=== PATIENT | female | born 1940 | race Caucasian/White ===

== ENCOUNTER → 2016-10-08 10:07 | Outpatient (CLI) | payer MEDICARE, OTHER ==
[2015-10-05 12:53] VITALS: BMI 31.9
[~2016-10-08 10:07] MED LIST: ALBUTEROL1.25 MG/3 INH; CRESTOR10 MG PO; LANTUS SOL100 UNIT/1; LEVSIN/ANASP0.125 MG PO; LISINOPRIL5 MG PO; MACRODANTIN50 MG PO; PRILOSEC20 MG PO; PROAIR HFA8.5 GM INH; PROLIA INJ 660 MG/M1 IJ; SINGULAIR10 MG PO; SYNTHROID100 MCG PO; SYNTHROID150 MCG PO; TESSALON PERLE100 MG PO; TOPROL XL50 MG PO; VITAMIN D31000 UNIT
== END | disposition home or self-care (01) ==
LOC: D.US 10-05 10:30
DX: I70.213 Atherosclerosis of native arteries of extremities with intermittent claudication, bilateral legs (principal); R60.0 Localized edema; M79.605 Pain in left leg; M79.604 Pain in right leg

== ENCOUNTER 2017-03-13 15:46 | Emergency (ER) | payer MEDICARE, OTHER ==
[2015-10-05 12:53] VITALS: BMI 31.9
[2017-03-13 17:37] LABS: BASOPHILS 0.1 % (0-2); EOSINOPHILS 0.2 % (0-7); HEMATOCRIT 36.2 % (36.0-48.0); HEMOGLOBIN 11.7 g/dL (12-16); IMMATURE GRANULOCYTES 0.2 % (0-5); LYMPHOCYTES 11.9 % (15-50); MCH 28.4 pg (26.0-34.0); MCHC 32.3 g/dL (31.0-37.0); MCV 87.9 fL (80.0-100.0); MEAN PLATELET VOLUME 10.2 fL (7.4-10.4); MONOCYTES 5.3 % (2-11); NEUTROPHILS 82.3 % (40-80); RBC 4.12 10x6/uL (4.00-5.40); RDW 16.3 % (11.5-14.5); WBC 9.2 10x3/uL (4.8-10.8)
[2017-03-13 17:40] LABS: PLATELET COUNT 217 10x3/uL (130-400)
[2017-03-13 17:52] LABS: INR 0.91 (0.85-1.17); PROTIME 12.1 SECONDS (11.6-15.0)
[2017-03-13 17:56] LABS: APPEARANCE HAZY (CLEAR); BILIRUBIN NEGATIVE (NEGATIVE); COLOR YELLOW (YELLOW); GLUCOSE NEGATIVE (NEGATIVE); KETONE LARGE mg/dL (NEGATIVE); LEUKOCYTE ESTERASE 1+ (NEGATIVE); NITRITE NEGATIVE (NEGATIVE); PROTEIN NEGATIVE (NEGATIVE); UROBILINOGEN NORMAL (NORMAL)
[2017-03-13 17:58] LABS: BACTERIA FEW /hpf (NONE SEEN); EPITHELIAL CELLS 0-5 /hpf (0-5); RED CELLS - URINE 0-5 /hpf (0-5); WHITE CELLS - URINE 25-50 /hpf (0-5)
[2017-03-13 17:59] LABS: ALBUMIN 3.3 g/dL (3.4-5.0); ALKALINE PHOSPHATASE 149 U/L (46-116); ALT (SGPT) 26 U/L (10-68); BILIRUBIN - TOTAL 0.31 mg/dL (0.2-1.3); CALCIUM 8.6 mg/dL (8.5-10.1); CARBON DIOXIDE 26.7 mmol/L (21.0-32.0); CHLORIDE - SERUM 97 mmol/L (98-107); CREATININE - SERUM 1.3 mg/dL (0.6-1.3); PROTEIN - SERUM 7.7 g/dL (6.4-8.2); SODIUM 133 mmol/L (136-145); UREA NITROGEN 18 mg/dL (7-18); eGFR NON AFRICAN AMERICAN 42 mL/min (90-120)
[2017-03-13 18:12] LABS: AMYLASE - SERUM 152 U/L (25-115); LIPASE 425 U/L (73-393); MAGNESIUM - SERUM 2.1 mg/dL (1.8-2.4); PRO BNP 71 pg/mL (0-450)
[2017-03-13 18:17] LABS: CALC OSMOLALITY 282 mosm/kg (275-300); GLUCOSE 372 mg/dL (74-106); TROPONIN-I < 0.017 ng/mL (0.000-0.060)
== END 2017-03-13 21:05 | disposition home or self-care (01) ==
LOC: D.ER 15:46
PROVIDERS: Emergency Medicine; Nurse Practitioner Family
DX: E11.65 Type 2 diabetes mellitus with hyperglycemia (principal); Z79.4 Long term (current) use of insulin; N39.0 Urinary tract infection, site not specified; Z79.2 Long term (current) use of antibiotics; E05.00 Thyrotoxicosis with diffuse goiter without thyrotoxic crisis or storm; J44.9 Chronic obstructive pulmonary disease, unspecified

== ENCOUNTER → 2017-06-10 08:39 | Outpatient (CLI) | payer MEDICARE, OTHER ==
[2015-10-05 12:53] VITALS: BMI 31.9
== END | disposition home or self-care (01) ==
LOC: D.RT 08:39
DX: J44.9 Chronic obstructive pulmonary disease, unspecified (principal)

== ENCOUNTER → 2018-02-06 07:22 | Outpatient (CLI) | payer MEDICARE, OTHER ==
[2015-10-05 12:53] VITALS: BMI 31.9
== END | disposition home or self-care (01) ==
LOC: D.CT 07:22
DX: N32.1 Vesicointestinal fistula (principal)

== ENCOUNTER → 2018-02-20 15:09 | Outpatient (CLI) | payer MEDICARE, OTHER ==
[2015-10-05 12:53] VITALS: BMI 31.9
[2018-02-20 16:59] LABS: APPEARANCE HAZY (CLEAR); BILIRUBIN NEGATIVE (NEGATIVE); COLOR DK YELLOW (YELLOW); GLUCOSE NEGATIVE (NEGATIVE); KETONE NEGATIVE (NEGATIVE); NITRITE NEGATIVE (NEGATIVE); PROTEIN 1+ mg/dL (NEGATIVE); SPECIFIC GRAVITY 1.015 (1.005-1.020); UROBILINOGEN NORMAL (NORMAL)
[2018-02-20 17:00] LABS: RED CELLS - URINE 25-50 /hpf (0-5); WHITE CELLS - URINE 0-5 /hpf (0-5)
[2018-02-20 17:01] LABS: BACTERIA FEW /hpf (NONE SEEN)
== END | disposition home or self-care (01) ==
LOC: D.LABREF 15:09
PROVIDERS: Urology
DX: R33.8 Other retention of urine (principal)

== ENCOUNTER → 2018-02-25 11:48 | Outpatient (CLI) | payer MEDICARE, OTHER ==
[2015-10-05 12:53] VITALS: BMI 31.9
[2018-02-25 13:00] LABS: APPEARANCE HAZY (CLEAR); BACTERIA MANY /hpf (NONE SEEN); BILIRUBIN NEGATIVE (NEGATIVE); COLOR YELLOW (YELLOW); EPITHELIAL CELLS 0-5 /hpf (0-5); GLUCOSE NEGATIVE (NEGATIVE); KETONE NEGATIVE (NEGATIVE); MUCUS <1+ /lpf (NONE SEEN); NITRITE NEGATIVE (NEGATIVE); PROTEIN TRACE mg/dL (NEGATIVE); RED CELLS - URINE 0-5 /hpf (0-5); UROBILINOGEN NORMAL (NORMAL)
== END | disposition home or self-care (01) ==
LOC: D.LAB 11:48
PROVIDERS: Urology
DX: N39.0 Urinary tract infection, site not specified (principal)

== ENCOUNTER → 2018-04-03 12:57 | Outpatient (CLI) | payer MEDICARE, OTHER ==
[2015-10-05 12:53] VITALS: BMI 31.9
[2018-04-03 15:58] LABS: APPEARANCE HAZY (CLEAR); BILIRUBIN NEGATIVE (NEGATIVE); COLOR YELLOW (YELLOW); GLUCOSE NEGATIVE (NEGATIVE); KETONE NEGATIVE (NEGATIVE); NITRITE NEGATIVE (NEGATIVE); PROTEIN NEGATIVE (NEGATIVE); UROBILINOGEN NORMAL (NORMAL)
[2018-04-03 16:09] LABS: BACTERIA MODERATE /hpf (NONE SEEN); EPITHELIAL CELLS 0-5 /hpf (0-5); RED CELLS - URINE 25-50 /hpf (0-5)
== END | disposition home or self-care (01) ==
LOC: D.LABREF 12:57
PROVIDERS: Urology
DX: R33.8 Other retention of urine (principal); N32.1 Vesicointestinal fistula; Z87.440 Personal history of urinary (tract) infections

== ENCOUNTER → 2018-04-08 16:23 | Outpatient (CLI) | payer MEDICARE, OTHER ==
[2015-10-05 12:53] VITALS: BMI 31.9
[2018-04-08 18:14] LABS: APPEARANCE CLEAR (CLEAR); BACTERIA MODERATE /hpf (NONE SEEN); BILIRUBIN NEGATIVE (NEGATIVE); COLOR YELLOW (YELLOW); EPITHELIAL CELLS 0-5 /hpf (0-5); GLUCOSE NEGATIVE (NEGATIVE); KETONE NEGATIVE (NEGATIVE); NITRITE NEGATIVE (NEGATIVE); PROTEIN NEGATIVE (NEGATIVE); RED CELLS - URINE 0-5 /hpf (0-5); UROBILINOGEN NORMAL (NORMAL); WHITE CELLS - URINE 25-50 /hpf (0-5)
== END | disposition home or self-care (01) ==
LOC: D.LABREF 16:23
PROVIDERS: Urology
DX: R33.9 Retention of urine, unspecified (principal); N28.9 Disorder of kidney and ureter, unspecified; E11.9 Type 2 diabetes mellitus without complications; T83.9XXA Unspecified complication of genitourinary prosthetic device, implant and graft, initial encounter

== ENCOUNTER → 2018-04-25 18:06 | Outpatient (CLI) | payer MEDICARE, OTHER ==
[2015-10-05 12:53] VITALS: BMI 31.9
[~2018-04-25 18:06] MED LIST changes: +IMURAN50 MG PO; +INSULIN LANTUS INJ; +NOVOLOG100 UNIT/1 SQ; +OMEPRAZOLE20 M1 PO; -PRILOSEC20 MG PO; +SYNTHROID112 MCG PO; -SYNTHROID150 MCG PO; +TETRACYCLINE PO; -VITAMIN D31000 UNIT; +VITAMIN D31000 UNIT PO
== END | disposition home or self-care (01) ==
LOC: D.LABREF 18:06
DX: D72.829 Elevated white blood cell count, unspecified (principal); R31.9 Hematuria, unspecified

== ENCOUNTER → 2018-05-09 21:15 | Outpatient (CLI) | payer MEDICARE, OTHER ==
[2015-10-05 12:53] VITALS: BMI 31.9
== END | disposition home or self-care (01) ==
LOC: D.LABREF 21:15
DX: N39.0 Urinary tract infection, site not specified (principal)

== ENCOUNTER 2018-05-15 05:25 | Day surgery (SDC) | payer MEDICARE, OTHER ==
[2018-05-14 14:58] LABS: BASOPHILS 0.1 % (0-2); EOSINOPHILS 2.1 % (0-7); HEMATOCRIT 36.9 % (36.0-48.0); HEMOGLOBIN 12.8 g/dL (12-16); IMMATURE GRANULOCYTES 0.3 % (0-5); LYMPHOCYTES 16.6 % (15-50); MCH 32.6 pg (26.0-34.0); MCHC 34.7 g/dL (31.0-37.0); MCV 93.9 fL (80.0-100.0); MEAN PLATELET VOLUME 10.4 fL (7.4-10.4); MONOCYTES 7.7 % (2-11); NEUTROPHILS 73.2 % (40-80); RBC 3.93 10x6/uL (4.00-5.40); RDW 15.7 % (11.5-14.5); WBC 9.1 10x3/uL (4.8-10.8)
[2018-05-14 15:00] LABS: PLATELET COUNT 143 10x3/uL (130-400)
[2018-05-14 15:13] LABS: APTT 28.1 SECONDS (22.8-39.4); PROTIME 12.8 SECONDS (11.6-15.0)
[2018-05-14 15:18] LABS: ALBUMIN 3.6 g/dL (3.4-5.0); ANION GAP 13.5 mmol/L (8-16); BILIRUBIN - TOTAL 0.55 mg/dL (0.2-1.3); CALCIUM 9.8 mg/dL (8.5-10.1); CARBON DIOXIDE 28.1 mmol/L (21.0-32.0); CREATININE - SERUM 1.4 mg/dL (0.6-1.3); POTASSIUM - SERUM 4.6 mmol/L (3.5-5.1); PROTEIN - SERUM 7.8 g/dL (6.4-8.2)
[~2018-05-15] VITALS: Ht 160 cm; Wt 83.0 kg
--- NOTE | ~2018-05-15 | OP ---
PATIENT NAME: TOMAS ALDANA MEDICAL RECORD: [id number] :41 LOCATION:IDA ADMISSION DATE: SURGEON: RAMILA BEAVERS MD DATE OF OPERATION: 05/15/2018 SURGEON: Ramila Beavers MD ANESTHESIA: TIVA by Sacha Wheeler. DIAGNOSIS: Chronic idiopathic urinary retention. PROCEDURE: InterStim stage I right S3. FINDINGS: Vaginal sensation of the right S3 with teresa reflex and toe flexion response. BLOOD LOSS: None. CLINICAL HISTORY: This is a 78-year-old female, who has chronic urinary retention. One of the urologists from [facility] gave her a chronic suprapubic catheter for urinary drainage. 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 She is having issues with the suprapubic catheter and she would like to resume spontaneous voiding if possible. Therefore, we are performing a trial with a bladder pacemaker today. ALLERGIES: SHE IS ALLERGIC TO INFLUENZA VACCINE, TETANUS TOXOID, ASPIRIN, CODEINE, IBUPROFEN, DEMEROL, BETADINE, BYDUREON, CIPRO, NITROFURANTOIN. We gave her Ancef online marketing coordinator to the OR. She was prepped with chlorhexidine prep. DESCRIPTION OF PROCEDURE: The patient was placed in the prone position on the OR table. She was then prepped and draped. Under fluoroscopy, the level of the S3 foramen was identified. The role of sacral foramina were also identified. Starting from about 2 fingerbreadths or 2 cm above the S3 foramen, we infiltrated the skin with 1% lidocaine with epinephrine. The spinal needles were then inserted and entered the S3 foramen on each side. These needles were tested. On the left side, the patient had more of a rectal sensation and higher voltages were required to elicit a pelvic floor contraction. On the right side, she was far more sensitive with a very low voltages being required to elicit a teresa reflex and toe flexion response on the right side. Also, she was feeling the stimulation in the vaginal area. We decided to go with the right side. The needle on the left side was removed completely. The stylet of the spinal needle was removed. An extra-long stylet was then inserted into the spinal needle lumen. We made a small incision on either side of the spinal needle using a #15 blade. The spinal needle was then removed, leaving the extra-long stylet in place. Over the extra-long stylet, we used a trocar dilator. The radiopaque marker on the trocar dilator was left between the 2 tables with her sacral bone tables at the midpoint. Once the stylet was in correct position, the stylet itself was removed as well as the extra-long stylet. The sheath was left in place. Through the lumen of the sheath, the permanent electrode was placed. This has a curve to it at the end. The curve runs from medial to lateral. We placed the electrode so that the channels 1 and 2 would straddle the inner table of her sacral bone. All 4 channels were tested. All 4 channels gave her response. Channels 1 and 2, gave the strongest OPERATIVE REPORT [id number] TOMAS ALDANA response. At this point, a small 1 inch incision was made in the right iliac crest region just inferior to the iliac crest. The skin here was infiltrated with epinephrine containing lidocaine before making the incision. The distal end of the electrode was tunneled using the tunneling device to this new incision site. Here the permanent tines electrode was connected to the temporary test electrode. The connection was made by tightening down the 4 locking screws with a torque-limiting screwdriver. The connection was made waterproof by placing a sheath around the connection and tying off each end of the sheath with a 2-0 Prolene tie. The tunneling device was again used and just to the left side of the midline on the sacrum, cranial to the sacral nerve entry site. We made an exit site for the temporary test electrode. We then stapled the incisions closed using staple gun. Dressings were applied. The patient will have her suprapubic tube clamped. She will try to void on her own. Once she has voided or if she is unsuccessful in voiding. She will then unclamp the suprapubic tube and measure the amount of postvoid residual. Ideally, she can void the entire amount and her postvoid residual would be 0. I will see her in followup next week to check on her voiding function with this device in place. TRANSINT:[id number] Voice Confirmation ID: [id number] DOCUMENT ID: [id number] RAMILA BEAVERS MD at 1058 CC: [id number] DICTATION DATE: 05/15/18906 ACCOUNTS PAYABLE SUPERVISOR: 05/15/18 0956 [facility] 05/15/18 [place] [id number] [place] [id number]
[2018-05-15 06:31] VITALS: BP 109/46; Ht 160 cm; Wt 83.0 kg
[2018-05-26] MEDS ORDERED: TETRACYCLINE PO (14:00)
== END 2018-05-15 10:20 | disposition home or self-care (01) ==
LOC: D.OPS 05:25 → D.PAN 07:30 → D.OPS 10:20
PROVIDERS: Anesthesiology
DX: R33.8 Other retention of urine (principal)

== ENCOUNTER → 2018-05-23 18:06 | Outpatient (CLI) | payer MEDICARE, OTHER ==
[2018-05-15 06:31] VITALS: BMI 32.4
== END | disposition home or self-care (01) ==
LOC: D.LABREF 18:06
DX: R31.9 Hematuria, unspecified (principal); D72.829 Elevated white blood cell count, unspecified

== ENCOUNTER 2018-05-27 06:01 | Day surgery (SDC) | payer MEDICARE, OTHER ==
[~2018-05-27] VITALS: Ht 160 cm; Wt 83.0 kg
--- NOTE | ~2018-05-27 | OP ---
PATIENT NAME: TOMAS ALDANA MEDICAL RECORD: [id number] :41 LOCATION:IDA ADMISSION DATE: SURGEON: RAMILA BEAVERS MD DATE OF OPERATION: 05/27/2018 SURGEON: Ramila Beavers MD. ANESTHESIA: TIVA by Julio Elmore CRNA. DIAGNOSES: Chronic urinary retention, recurrent urinary tract infections. PROCEDURE: InterStim stage II, removal of suprapubic tube. BLOOD LOSS: None. CLINICAL HISTORY: This is a 78-year-old female, who has chronic idiopathic urinary retention. She saw Dr. Juarez in the past and he placed a suprapubic tube into her. Because of the suprapubic tube, she keeps getting recurrent urinary tract infections. In fact, she is currently on antibiotics for urinary tract infection. I performed a stage I InterStim trial on her. The patient did resume spontaneous voiding on her own. We measured her postvoid residual in the office at 14 mL. She comes to have the permanent pacemaker implanted today, which is a stage II. At the same time, we will remove her suprapubic tube. She is allergic to multiple things including BACTRIM, FLU VACCINE, TETANUS TOXOID, ASPIRIN, CIPRO, CODEINE, BYDUREON, IBUPROFEN, DEMEROL, NITROFURANTOIN, and BETADINE SOAP. She was given Ancef shoe reconditioner to the OR. DESCRIPTION OF PROCEDURE: The patient was given IV sedation while she was still in the stretcher in supine position. The suprapubic catheter balloon was then deflated and removed entirely. We put a temporary dressing on her suprapubic wound site. The patient was then turned into prone position. The janell on her back were removed. She was prepped and draped. The external lead for the InterStim device sticking out of the skin was cut at the skin exit site. The janell had been removed and her incision in the right iliac crest region was reopened. Here, we disconnected the connection between the external lead and the permanent electrode. Once this was done, a pocket was made in the subcutaneous fat with blunt dissection using the fingers. I made the pocket go right above the gluteal fascia. The pacemaker was then inserted on to the wire and tightened down with a torque-limiting screwdriver. The device was then placed into its pocket. Telemetry was performed and it verified that all functions were correct. We then irrigated the wound with normal saline and closed the wound with janell. Dressings were applied. The patient was turned back into the supine position and a new dressing was applied at the suprapubic tube site. I will see her in followup in 1 week's time to remove the janell. TRANSINT:[id number] Voice Confirmation ID: [id number] DOCUMENT ID: [id number] OPERATIVE REPORT [id number] TOMAS ALDANA, RAMILA Collier MD at 1401 CC: [id number] DICTATION DATE: 05/27/18929 BONE CHAR KILN OPERATOR: 05/27/18953 [address] [place] [id number] [place] [address]
[2018-05-27 06:31] LABS: BASOPHILS 0.1 % (0-2); EOSINOPHILS 2.4 % (0-7); HEMATOCRIT 35.5 % (36.0-48.0); IMMATURE GRANULOCYTES 0.4 % (0-5); LYMPHOCYTES 9.9 % (15-50); MCH 32.3 pg (26.0-34.0); MCHC 33.8 g/dL (31.0-37.0); MCV 95.7 fL (80.0-100.0); MONOCYTES 7.4 % (2-11); NEUTROPHILS 79.8 % (40-80); PLATELET COUNT 127 10x3/uL (130-400); RBC 3.71 10x6/uL (4.00-5.40); RDW 15.8 % (11.5-14.5)
[2018-05-27 07:06] LABS: ANION GAP 14.1 mmol/L (8-16); CALCIUM 9.1 mg/dL (8.5-10.1); CARBON DIOXIDE 25.3 mmol/L (21.0-32.0); CREATININE - SERUM 1.2 mg/dL (0.6-1.3); POTASSIUM - SERUM 4.4 mmol/L (3.5-5.1)
[2018-05-27 07:16] VITALS: BP 134/52; Ht 160 cm; Wt 83.0 kg
== END 2018-05-27 11:45 | disposition home or self-care (01) ==
LOC: D.OPS 06:01 → D.PAN 08:30 → D.OPS 09:00 → D.PAN 10:40 → D.OPS 11:45 → D.PAN 12:00 → D.OPS 12:00
PROVIDERS: Anesthesiology
DX: R33.8 Other retention of urine (principal); Z87.440 Personal history of urinary (tract) infections; Z88.6 Allergy status to analgesic agent; Z88.1 Allergy status to other antibiotic agents; Z88.5 Allergy status to narcotic agent; Z88.2 Allergy status to sulfonamides; Z88.7 Allergy status to serum and vaccine; Z01.812 Encounter for preprocedural laboratory examination

== ENCOUNTER → 2018-06-27 09:36 | Outpatient (CLI) | payer MEDICARE, OTHER ==
[2018-05-27 07:16] VITALS: BMI 32.4
== END | disposition home or self-care (01) ==
LOC: D.RT 09:36
DX: J44.9 Chronic obstructive pulmonary disease, unspecified (principal); R22.43 Localized swelling, mass and lump, lower limb, bilateral

== ENCOUNTER 2018-07-03 12:54 | Day surgery (SDC) | payer MEDICARE, OTHER ==
[~2018-07-03] VITALS: Ht 160 cm; Wt 84.5 kg
--- NOTE | ~2018-07-03 | OP ---
PATIENT NAME: TOMAS ALDANA MEDICAL RECORD: [id number] :41 LOCATION:D.OPS ADMISSION DATE: SURGEON: CYDNEY PINTO MD DATE OF OPERATION: 07/03/2018 PROCEDURE: Colonoscopy with polypectomy, colonoscopy with biopsy. OIL TANKER CAPTAIN: Cydney Pinto MD SCOPE: Olympus video colonoscope. MEDICATIONS: Per TIVA anesthesia. The patient received 250 mg of propofol for this procedure, O2 at 4 liters. INDICATION FOR THE PROCEDURE: Right lower quadrant abdominal pain, personal history of colon cancer, and history of diverticular disease. FINDINGS: Informed consent was given. The patient was made comfortable with the above medications. After reaching an adequate level of sedation by slow IV push, the patient was placed on her left side. The rectal exam revealed good sphincter tone. No fissures or fistulas were appreciated. No external skin tags were seen. The colonoscope was advanced to the cecum, where the ileocecal valve and the appendiceal orifice were identified. The prep was fair and poor in some areas. For this reason, some lesions could have been missed during our inspection. In the right lower quadrant, the cecum was identified and photographed. We did intubate the small bowel and the terminal ileal tissue, which was seen and examined, was felt to be normal. The appendiceal orifice was normal as well as the ileocecal valve. On withdrawal of the scope, mucosa was carefully inspected. The patient did have one small lipoma within the cecum and a biopsy was obtained. The scope was then further withdrawn, and in the sigmoid area, the patient had a [id number]-jg-[id number] anastomosis with one area of a small pouch, which was a small blind loop. Only a few diverticula were seen in the left side of the colon and none of these were packed with stool or infected. Within the rectum, evidence of proctitis was appreciated and biopsies were obtained. The patient had 2 small polyps which were seen and removed with hot biopsy forceps technique. All areas within the rectum did bleed very freely after biopsy or polypectomy and these needed to be again addressed with further coagulation. Hemostasis was achieved. On retroflexion and final withdrawal of the scope, some hemorrhoids were appreciated. Photo documentation was obtained. The scope was then withdrawn. IMPRESSION: 1. Normal ileocecal valve. Normal appendiceal orifice. Normal terminal ileum. Photo documentation obtained. 2. Small lipoma within the cecal area. We did take a biopsy of this area. 3. Minimal left-sided diverticulosis without diverticulitis. 4. Large area at 20 cm, which is a part of the anastomotic site and represents a small blind loop. This was said to represent a diverticulum on a recent CT. 5. Proctitis. 6. Two small-benign appearing polyps seen and removed with hot biopsy forceps technique and within the rectum. As mentioned, the areas that were biopsied in the rectal vault or coagulated did bleed and further photocoagulation was necessary with hot biopsy forceps technique. 7. Internal hemorrhoids. OPERATIVE REPORT [id number] TOMAS ALDANA 8. Spasm associated with irritable bowel syndrome. 9. Adhesions. PLAN: 1. The patient should follow a high-fiber diet. 2. Continue Levsin. 3. Probiotics. 4. Return to clinic on a p.r.n. basis. If the discomfort continues, we would need to proceed with CTA of the abdomen and then refer the patient if the pain persists for an exploratory lap to cut down adhesions. TRANSINT:[id number] Voice Confirmation ID: [id number] DOCUMENT ID: [id number] CYDNEY PINTO MD CC: SARA MARC MD, INGE CLEMENS MD and LEXUS RICK [id number] DICTATION DATE: 07/03/181628 MANUAL EQUIPMENT MECHANIC: 07/03/181917 [facility] 07/03/[address] [facility] [address] [place] [address]
[2018-07-03 13:47] VITALS: BP 125/47; Ht 160 cm; Wt 84.5 kg
[2018-07-03 13:50] LABS: BASOPHILS 0.2 % (0-2); EOSINOPHILS 0.5 % (0-7); HEMATOCRIT 36.3 % (36.0-48.0); HEMOGLOBIN 12.4 g/dL (12-16); IMMATURE GRANULOCYTES 0.2 % (0-5); MCH 32.2 pg (26.0-34.0); MCHC 34.2 g/dL (31.0-37.0); MCV 94.3 fL (80.0-100.0); MEAN PLATELET VOLUME 10.2 fL (7.4-10.4); MONOCYTES 6.7 % (2-11); NEUTROPHILS 80.4 % (40-80); PLATELET COUNT 120 10x3/uL (130-400); RBC 3.85 10x6/uL (4.00-5.40); RDW 15.7 % (11.5-14.5); WBC 6.1 10x3/uL (4.8-10.8)
[2018-07-03 14:03] LABS: CALCIUM 9.4 mg/dL (8.5-10.1); CREATININE - SERUM 1.2 mg/dL (0.6-1.3)
== END 2018-07-03 17:30 | disposition home or self-care (01) ==
LOC: D.OPS 12:54
PROVIDERS: Anesthesiology
DX: R10.31 Right lower quadrant pain (principal); Z85.038 Personal history of other malignant neoplasm of large intestine; K57.90 Diverticulosis of intestine, part unspecified, without perforation or abscess without bleeding; K64.8 Other hemorrhoids; D17.79 Benign lipomatous neoplasm of other sites; K62.89 Other specified diseases of anus and rectum; K62.1 Rectal polyp

== ENCOUNTER → 2018-07-09 18:54 | Outpatient (CLI) | payer MEDICARE, OTHER ==
[2018-07-03 13:47] VITALS: BMI 33.0
== END | disposition home or self-care (01) ==
LOC: D.LABREF 18:54
DX: N39.0 Urinary tract infection, site not specified (principal)

== ENCOUNTER → 2018-07-23 18:09 | Outpatient (CLI) | payer MEDICARE, OTHER ==
[2018-07-03 13:47] VITALS: BMI 33.0
== END | disposition home or self-care (01) ==
LOC: D.LABREF 18:09
DX: N39.0 Urinary tract infection, site not specified (principal)

== ENCOUNTER 2018-08-25 13:31 | Emergency (ER) | payer MEDICARE, OTHER ==
[~2018-08-25] VITALS: Ht 160 cm; Wt 72.7 kg
[2018-08-25 13:38] VITALS: Ht 160 cm; Wt 72.7 kg
[2018-08-25] MEDS ORDERED: HYDROCODON-ACE1 EA10 PO (18:32)
[2018-08-25 18:45] VITALS: BP 145/82
== END 2018-08-25 18:46 | disposition home or self-care (01) ==
LOC: D.ER 13:31
DX: M54.5 Low back pain (principal); I71.4 Abdominal aortic aneurysm, without rupture; J44.9 Chronic obstructive pulmonary disease, unspecified; Z99.81 Dependence on supplemental oxygen; E11.9 Type 2 diabetes mellitus without complications; I10 Essential (primary) hypertension

== ENCOUNTER 2018-10-19 18:27 | Emergency (ER) | payer MEDICARE, OTHER ==
[~2018-10-19] VITALS: Ht 160 cm; Wt 85.5 kg
[~2018-10-19 18:27] MED LIST changes: +HYDROCODON-ACE1 EA10 PO
[2018-10-19 18:29] VITALS: Ht 160 cm; Wt 85.5 kg
[2018-10-19 19:09] LABS: BASOPHILS 0.2 % (0-2); EOSINOPHILS 1.3 % (0-7); HEMATOCRIT 34.2 % (36.0-48.0); HEMOGLOBIN 11.3 g/dL (12-16); IMMATURE GRANULOCYTES 0.3 % (0-5); MEAN PLATELET VOLUME 10.5 fL (7.4-10.4); MONOCYTES 7.2 % (2-11); PLATELET COUNT 118 10x3/uL (130-400); RBC 3.64 10x6/uL (4.00-5.40); RDW 15.6 % (11.5-14.5); WBC 6.2 10x3/uL (4.8-10.8)
[2018-10-19 19:28] LABS: ALBUMIN 3.3 g/dL (3.4-5.0); ALKALINE PHOSPHATASE 139 U/L (46-116); ALT (SGPT) 23 U/L (10-68); BILIRUBIN - TOTAL 0.34 mg/dL (0.2-1.3); CALC OSMOLALITY 291 mosm/kg (275-300); CALCIUM 8.9 mg/dL (8.5-10.1); CARBON DIOXIDE 27.9 mmol/L (21.0-32.0); CHLORIDE - SERUM 103 mmol/L (98-107); CREATININE - SERUM 1.6 mg/dL (0.6-1.3); GLUCOSE 220 mg/dL (74-106); POTASSIUM - SERUM 4.4 mmol/L (3.5-5.1); PROTEIN - SERUM 7.6 g/dL (6.4-8.2); SODIUM 139 mmol/L (136-145); UREA NITROGEN 31 mg/dL (7-18); eGFR NON AFRICAN AMERICAN 33 mL/min (90-120)
[2018-10-19 19:43] LABS: CKMB 1.2 U/L (0.0-3.6); CREATINE KINASE 53 UL (21-215)
[2018-10-19 19:44] LABS: TROPONIN-I < 0.017 ng/mL (0.000-0.060)
[2018-10-19 20:53] VITALS: BP 102/77
== END 2018-10-19 20:53 | disposition home or self-care (01) ==
LOC: D.ER 18:27
PROVIDERS: Family Medicine
DX: J70.5 Respiratory conditions due to smoke inhalation (principal); J44.9 Chronic obstructive pulmonary disease, unspecified

== ENCOUNTER → 2019-06-16 08:39 | Outpatient (CLI) | payer MEDICARE, OTHER ==
[2018-10-19 18:29] VITALS: BMI 33.3
== END | disposition home or self-care (01) ==
LOC: D.RT 08:39
PROVIDERS: ATTEND Internal Medicine Pulmonary Disease
DX: J44.9 Chronic obstructive pulmonary disease, unspecified (principal)

== ENCOUNTER 2020-12-28 16:33 | Inpatient (IN) | payer MEDICARE, OTHER ==
[~2020-12-28] VITALS: Ht 160 cm; Wt 81.8 kg
[2020-12-28 17:43] LABS: BACTERIA MODERATE HPF (NONE SEEN); BILIRUBIN NEGATIVE (NEGATIVE); KETONE NEGATIVE (NEGATIVE); NITRITE NEGATIVE (NEGATIVE); UROBILINOGEN NORMAL mg/dL (< 2); WHITE CELLS - URINE >50 HPF (0-4)
[2020-12-28 20:14] LABS: BASOPHILS 0.4 % (0-2); EOSINOPHILS 1.7 % (0-7); HEMATOCRIT 34.4 % (36.0-48.0); HEMOGLOBIN 11.1 g/dL (12-16); MCH 28.1 pg (26.0-34.0); MCHC 32.3 g/dL (31.0-37.0); MCV 87.1 fL (80.0-100.0); MEAN PLATELET VOLUME 8.5 fL (7.4-10.4); MONOCYTES 7.2 % (2-11); NEUTROPHILS 81.7 % (40-80); PLATELET COUNT 111 10x3/uL (130-400); RBC 3.95 10x6/uL (4.00-5.40); RDW 17.3 % (11.5-14.5); WBC 5.9 10x3/uL (4.8-10.8)
[2020-12-28 20:20] LABS: APTT 30.8 SECONDS (22.8-39.4); INR 1.12 (0.85-1.17); PROTIME 13.3 SECONDS (11.6-15.0)
[2020-12-28 20:21] LABS: CALC OSMOLALITY 286 mosm/kg (275-300); CALCIUM 8.8 mg/dL (8.5-10.1); CARBON DIOXIDE 27.6 mmol/L (21.0-32.0); CHLORIDE - SERUM 102 mmol/L (98-107); CREATININE - SERUM 1.3 mg/dL (0.6-1.3); GLUCOSE 206 mg/dL (74-106); POTASSIUM - SERUM 4.2 mmol/L (3.5-5.1); SODIUM 139 mmol/L (136-145); UREA NITROGEN 20 mg/dL (7-18); eGFR NON AFRICAN AMERICAN 42 mL/min (90-120)
[2020-12-28 20:26] LABS: D-DIMER-QUANTITATIVE 3.85 ug/mLFEU (0.20-0.54)
[2020-12-28 20:35] LABS: ALBUMIN 3.5 g/dL (3.4-5.0); ALKALINE PHOSPHATASE 200 U/L (30-120); ALT (SGPT) 35 U/L (10-68); BILIRUBIN - TOTAL 0.52 mg/dL (0.2-1.3); C-REACTIVE PROTEIN 5.7 mg/dL (0.0-0.9); CREATINE KINASE 39 UL (21-215); LIPASE 1929 U/L (73-393); PRO BNP 119 pg/mL (0-450); PROTEIN - SERUM 7.7 g/dL (6.4-8.2); THYROID STIMULATING HORMONE 5.24 uIU/mL (0.36-3.74); TROPONIN-I < 0.017 ng/mL (0.000-0.060)
[2020-12-28 21:15] VITALS: BP 146/52
[2020-12-28] MEDS ORDERED: LANTUS INS100 UNITS/ SC (23:28)
[2020-12-28] MEDS ORDERED: NOVOLOG100 UNIT/1 SC ×2 (23:29→23:30)
[2020-12-28] MEDS ORDERED: HUMALOG 30100 UNITS/ (23:31)
[2020-12-28] MEDS ORDERED: LANTUS INS100 UNITS/ (23:32)
[2020-12-28] MEDS ORDERED: LIPITOR20 MG (23:35)
[2020-12-29] VITALS (7 sets, daily range): BP systolic 100–150; BP diastolic 36–80; Ht 160 cm; Wt 81.8 kg
--- NOTE | 2020-12-29 01:40 | NUR ---
PT REARRANGING FURNITURE IN ROOM, REQUESTING PAIN MEDICATION. INFORMED HER NEXT DOSE COULDN'T BE GIVEN UNTIL AFTER 0200. PTs CALLED HER A DRUG ADDICT. STATED, "WHEN I HAD MY HIP REPLACED, I DIDN'T TAKE ANY OF MY PAIN MEDS. YOU KNOW WHO DID? HER!" AND GESTURED AT . STATED SHE WAS HURTING TOO, AT THAT TIME. CPOC.
--- NOTE | 2020-12-29 04:15 | NUR ---
I have reviewed this patient and I concur with the Shift Assessment completed by the Licensed Practical Nurse today this shift.
--- NOTE | 2020-12-29 07:54 | NUR ---
RECIEVED BEDSIDE REPORT. BED LOW POSITION, CALL LIGHT IN REACH. UP AD LEONARD, ALERT AND ORIENTED. WILL CONTINUE TO MONITOR.
[2020-12-29 10:45] LABS: BASOPHILS 0.2 % (0-2); EOSINOPHILS 0.9 % (0-7); HEMATOCRIT 28.5 % (36.0-48.0); HEMOGLOBIN 9.4 g/dL (12-16); LYMPHOCYTES 6.2 % (15-50); MCH 28.8 pg (26.0-34.0); MCHC 32.8 g/dL (31.0-37.0); MCV 87.8 fL (80.0-100.0); MEAN PLATELET VOLUME 8.3 fL (7.4-10.4); MONOCYTES 6.6 % (2-11); NEUTROPHILS 86.1 % (40-80); PLATELET COUNT 86 10x3/uL (130-400); RBC 3.25 10x6/uL (4.00-5.40); RDW 17.5 % (11.5-14.5); WBC 4.8 10x3/uL (4.8-10.8)
[2020-12-29 10:49] LABS: INR 1.14 (0.85-1.17); PROTIME 13.5 SECONDS (11.6-15.0)
[2020-12-29 10:54] LABS: ALBUMIN 3.2 g/dL (3.4-5.0); ANION GAP 11.3 mmol/L (8-16); BILIRUBIN - TOTAL 0.41 mg/dL (0.2-1.3); CALCIUM 8.3 mg/dL (8.5-10.1); CARBON DIOXIDE 26.7 mmol/L (21.0-32.0); CREATININE - SERUM 1.4 mg/dL (0.6-1.3); PROTEIN - SERUM 6.9 g/dL (6.4-8.2)
[2020-12-29 10:58] LABS: PLATELET ESTIMATE DECREASED
[2020-12-30] VITALS: BP 103/45
[2020-12-30 04:00] VITALS: BP 98/40
--- NOTE | 2020-12-30 04:54 | NUR ---
I have reviewed this patient and I concur with the Shift Assessment completed by the Licensed Practical Nurse today this shift.
[2020-12-30 06:58] LABS: BASOPHILS 0.3 % (0-2); EOSINOPHILS 1.6 % (0-7); HEMATOCRIT 26.6 % (36.0-48.0); HEMOGLOBIN 8.8 g/dL (12-16); LYMPHOCYTES 7.5 % (15-50); MCH 28.8 pg (26.0-34.0); MCHC 33.1 g/dL (31.0-37.0); MEAN PLATELET VOLUME 8.7 fL (7.4-10.4); MONOCYTES 7.3 % (2-11); NEUTROPHILS 83.3 % (40-80); PLATELET COUNT 83 10x3/uL (130-400); RBC 3.05 10x6/uL (4.00-5.40); RDW 17.5 % (11.5-14.5); WBC 4.7 10x3/uL (4.8-10.8)
[2020-12-30 07:14] LABS: ALBUMIN 2.8 g/dL (3.4-5.0); ANION GAP 14.8 mmol/L (8-16); BILIRUBIN - TOTAL 0.31 mg/dL (0.2-1.3); CALCIUM 8.3 mg/dL (8.5-10.1); CARBON DIOXIDE 24.5 mmol/L (21.0-32.0); MAGNESIUM - SERUM 1.9 mg/dL (1.8-2.4); POTASSIUM - SERUM 4.3 mmol/L (3.5-5.1); PROTEIN - SERUM 6.2 g/dL (6.4-8.2)
--- NOTE | 2020-12-30 07:57 | NUR ---
SITTING UP AT SIDE OF THE BED, AT THE BEDSIDE. IV LOCATED TO LEFT AC CURRENTLY RUNNING NS @ 75. NO CURRENT S/S OF DISTRESS, DENIES CURRENT NEEDS, WILL CONT TO MONITOR.
[2020-12-30] MEDS ORDERED: MUCINEX600 MG PO (08:29)
[2020-12-30] MEDS ORDERED: OMNICEF300 MG PO (08:32)
[2020-12-30 08:56] VITALS: BP 148/59
--- NOTE | 2020-12-30 10:33 | MORECARE ---
CASE MANAGEMENT DISCHARGE SUMMARY PATIENT: TOMAS ALDANA UNIT: [id number] ADM DATE: 12/29/20 AGE: 80 : 41 SEX: F ROOM/BED: D.2212 AUTHOR: SHA,DOC PHYSICIAN: REFERRING PHYSICIAN: JOHNATHON GIL MD DATE OF SERVICE: 12/30/20 Case Management Discharge Planning Summary DCP REVIEW SUMMARY ANTICIPATED D/C DATE: EXPECTED LOS : CASE STATUS: DCP Initiated INITIAL REVIEW: 12/28/2020 INITIAL REVIEWER: Deann Zuniga FINAL DISCHARGE DISPOSITION: 06 : Discharged/Trans to Home Under Care of Organized Home Health Service in Anticipation of Skilled Care FINAL REVIEWER: FINAL REVIEW DATE: DCP Focus Questions & Answers QUESTION: ANSWER : PATIENT: TOMAS ALDANA ENCOUNTER: [id number] MEDICAL RECORD#: [id number] ADMISSION DATE: 12/29/2020 DISCHARGE DATE: ATTENDING MD: JOHNATHON GUARDADO : AGE: 80 MARITAL STATUS: M DC PLAN ID: [id number] FACILITY: [facility] PRINTED ON: 12/30/20 10:33 CT All edits/amendments must be made on the electronic document DICTATION DATE: 12/30/20 1033 BULK DRIVER: LESTER 12/30/20 1033 RPT#: [id number] DC DATE: STATUS: ADM IN [facility] [address] [place] [address] END OF REPORT
--- NOTE | 2020-12-30 10:45 | MORECARE ---
CASE MANAGEMENT DISCHARGE SUMMARY PATIENT: TOMAS ALDANA UNIT: [id number] ADM DATE: 12/29/20 AGE: 80 : 41 SEX: F ROOM/BED: D.2212 AUTHOR: SHA,DOC PHYSICIAN: REFERRING PHYSICIAN: JOHNATHON GIL MD DATE OF SERVICE: 12/30/20 Case Management Discharge Planning Summary COMMENTS ENTERED DATE: 12/30/20 10:26 CT COMMENT TYPE: Discharge Planning REVIEWER: Deann Zuniga CM met with patient to complete initial dc planning assessment. CM educated patient on the CM role and verbal consent given by patient to complete assessment. Patient lives at home with his spouse where she is independent with her care. At discharge patient plans to return home and feels this is a safe discharge. CM discussed availability of home health, rehab services, and medical equipment. She would like home health. NEYDA with [facility]. She has home O2 with portability from midline. She has a nebulizer that she does not use. Her PCP is Dr Moctezuma and she uses [facility] on [address]. She has a nebulizer, cane, walker, BSC, and shower chair. IMM served and explained. Patient denied known discharge needs at this time. CM will continue to follow and will assist as needed with dc plans/needs. DCP REVIEW SUMMARY ANTICIPATED D/C DATE: EXPECTED LOS : CASE STATUS: DCP Initiated INITIAL REVIEW: 12/28/2020 INITIAL REVIEWER: Deann Zuniga FINAL DISCHARGE DISPOSITION: 06 : Discharged/Trans to Home Under Care of Organized Home Health Service in Anticipation of Skilled Care FINAL REVIEWER: FINAL REVIEW DATE: DCP Focus Questions & Answers QUESTION: ANSWER : PATIENT: TOMAS ALDANA ENCOUNTER: [id number] MEDICAL RECORD#: [id number] ADMISSION DATE: 12/29/2020 DISCHARGE DATE: ATTENDING MD: JOHNATHON GUARDADO : AGE: 80 MARITAL STATUS: M DC PLAN ID: [id number] FACILITY: [facility] PRINTED ON: 12/30/20 10:45 CT All edits/amendments must be made on the electronic document DICTATION DATE: 12/30/201044 COMMUNICATIONS CONTROLLER: LESTER 12/30/20 1045 RPT#: [id number] DC DATE: STATUS: ADM IN [facility] [address] [facility] [place] [address] END OF REPORT
--- NOTE | 2020-12-30 11:34 | NUR ---
DISCHARGED VIA HOSPITAL STAFF AND WHEELCHAIR HOME WITH FAMILY WITH NO CONCERNS NOTED.
--- NOTE | 2020-12-30 11:43 | MORECARE ---
CASE MANAGEMENT DISCHARGE SUMMARY PATIENT: TOMAS ALDANA UNIT: [id number] ADM DATE: 12/29/20 AGE: 80 : 41 SEX: F ROOM/BED: D.2212 AUTHOR: SHA,DOC PHYSICIAN: REFERRING PHYSICIAN: JOHNATHON GIL MD DATE OF SERVICE: 12/30/20 Case Management Discharge Planning Summary COMMENTS ENTERED DATE: 12/30/20 10:26 CT COMMENT TYPE: Discharge Planning REVIEWER: Deann Zuniga CM met with patient to complete initial dc planning assessment. CM educated patient on the CM role and verbal consent given by patient to complete assessment. Patient lives at home with his spouse where she is independent with her care. At discharge patient plans to return home and feels this is a safe discharge. CM discussed availability of home health, rehab services, and medical equipment. She would like home health. NEYDA with [facility]. She has home O2 with portability from midline. She has a nebulizer that she does not use. Her PCP is Dr Moctezuma and she uses [facility] on [address]. She has a nebulizer, cane, walker, BSC, and shower chair. IMM served and explained. Patient denied known discharge needs at this time. CM will continue to follow and will assist as needed with dc plans/needs. DCP REVIEW SUMMARY ANTICIPATED D/C DATE: EXPECTED LOS : CASE STATUS: DCP Initiated INITIAL REVIEW: 12/28/2020 INITIAL REVIEWER: Deann Zuniga FINAL DISCHARGE DISPOSITION: 06 : Discharged/Trans to Home Under Care of Organized Home Health Service in Anticipation of Skilled Care FINAL REVIEWER: FINAL REVIEW DATE: DCP Focus Questions & Answers QUESTION: ANSWER : PATIENT: TOMAS ALDANA ENCOUNTER: [id number] MEDICAL RECORD#: [id number] ADMISSION DATE: 12/29/2020 DISCHARGE DATE: 12/30/2020 ATTENDING MD: JOHNATHON GUARDADO : AGE: 80 MARITAL STATUS: M DC PLAN ID: [id number] FACILITY: [facility] PRINTED ON: 12/30/20 11:43 CT All edits/amendments must be made on the electronic document DICTATION DATE: 12/30/20 1143 DROP WORKER: LESTER 12/30/20 1143 RPT#: [id number] DC DATE:12/30/20 STATUS: DIS IN [facility] [address] [place] [address] END OF REPORT
--- NOTE | 2021-01-02 15:23 | MORECARE ---
CASE MANAGEMENT DISCHARGE SUMMARY PATIENT: TOMAS ALDANA UNIT: [id number] ADM DATE: 12/29/20 AGE: 80 : 41 SEX: F ROOM/BED: D.2212 AUTHOR: SHA,KASEY PHYSICIAN: REFERRING PHYSICIAN: JOHNATHON GIL MD DATE OF SERVICE: 01/02/21 Case Management Discharge Planning Summary COMMENTS ENTERED DATE: 12/30/20 10:26 CT COMMENT TYPE: Discharge Planning REVIEWER: Deann Zuniga CM met with patient to complete initial dc planning assessment. CM educated patient on the CM role and verbal consent given by patient to complete assessment. Patient lives at home with his spouse where she is independent with her care. At discharge patient plans to return home and feels this is a safe discharge. CM discussed availability of home health, rehab services, and medical equipment. She would like home health. NEYDA with [facility]. She has home O2 with portability from midline. She has a nebulizer that she does not use. Her PCP is Dr Moctezuma and she uses [facility] on [address]. She has a nebulizer, cane, walker, BSC, and shower chair. IMM served and explained. Patient denied known discharge needs at this time. CM will continue to follow and will assist as needed with dc plans/needs. DCP REVIEW SUMMARY ANTICIPATED D/C DATE: EXPECTED LOS : CASE STATUS: DCP Initiated INITIAL REVIEW: 12/28/2020 INITIAL REVIEWER: Deann Zuniga FINAL DISCHARGE DISPOSITION: 06 : Discharged/Trans to Home Under Care of Organized Home Health Service in Anticipation of Skilled Care FINAL REVIEWER: FINAL REVIEW DATE: DCP Focus Questions & Answers QUESTION: ANSWER : PATIENT: TOMAS ALDANA ENCOUNTER: [id number] MEDICAL RECORD#: [id number] ADMISSION DATE: 12/29/2020 DISCHARGE DATE: 12/30/2020 ATTENDING MD: JOHNATHON GUARDADO : AGE: 80 MARITAL STATUS: M DC PLAN ID: [id number] FACILITY: [facility] PRINTED ON: 01/02/21 15:22 CT All edits/amendments must be made on the electronic document DICTATION DATE: 01/02/21 152 RUBBER CHEMIST: LESTER 01/02/21 152 RPT#: [id number] DC DATE:12/30/20 STATUS: DIS IN [facility] [address] [place] [address] END OF REPORT
== END 2020-12-30 11:35 | disposition home health service (06) | DRG 184 ==
LOC: D.ER 16:33 → D.MS 20:38 → D.EDHOLD 20:38 → OBSVTIME 20:39 → D.MS 21:56
PROVIDERS: Emergency Medicine; Family Medicine; ADMIT Emergency Medicine; ATTEND Emergency Medicine
DX: S22.41XA Multiple fractures of ribs, right side, initial encounter for closed fracture (principal); N39.0 Urinary tract infection, site not specified; W19.XXXA Unspecified fall, initial encounter; D64.9 Anemia, unspecified; I71.4 Abdominal aortic aneurysm, without rupture; J44.9 Chronic obstructive pulmonary disease, unspecified; E78.5 Hyperlipidemia, unspecified; M19.90 Unspecified osteoarthritis, unspecified site; M81.0 Age-related osteoporosis without current pathological fracture; K21.9 Gastro-esophageal reflux disease without esophagitis; E11.22 Type 2 diabetes mellitus with diabetic chronic kidney disease; I12.9 Hypertensive chronic kidney disease with stage 1 through stage 4 chronic kidney disease, or unspecified chronic kidney disease; N18.9 Chronic kidney disease, unspecified; E11.40 Type 2 diabetes mellitus with diabetic neuropathy, unspecified; K75.4 Autoimmune hepatitis